=== PATIENT | male | born 1995 | race Caucasian/White ===

== ENCOUNTER 2018-03-05 23:09 | Emergency (ER) | payer BC ==
[~2018-03-05] VITALS: Ht 182.9 cm; Wt 115.0 kg
[2018-03-05 23:18] VITALS: BP 137/61
== END 2018-03-05 23:34 | disposition home or self-care (01) ==
LOC: ED 23:15
DX: F10.220 Alcohol dependence with intoxication, uncomplicated (principal)
CPT/HCPCS: 99283